=== PATIENT | female | born 1995 | race Caucasian/White ===

== ENCOUNTER 2017-10-06 15:11 | Inpatient (IN) | payer MEDICAID, OTHER ==
[~2017-10-06] VITALS: Ht 177.8 cm; Wt 96.5 kg
[2017-10-06] MEDS ORDERED: SODIUM CHLORIDE 0.9% 500 ML IVB ONE (15:25)
[2017-10-06] MEDS ORDERED: MORPHINE SULFATE 8mg/ml INJ SDV IV ONE (15:30)
[2017-10-06] MEDS ORDERED: ONDANSETRON HCL 4 MG/2 ML VIAL IV ONE (15:30)
[2017-10-06 16:00] LABS: Basophils # (auto) 0.1 uL; Basophils % (auto) 0.6 % (0.0-2.0); Eosinophils # (auto) 0.1 uL; Eosinophils % (auto) 0.9 % (0.0-7.0); Hematocrit 37.7 % (36.0-46.0); Hemoglobin 11.8 g/dL (12.2-16.2); Lymphocytes # (auto) 2.6 uL; Lymphocytes % (auto) 17.5 % (10.0-50.0); Mean Corpuscular Hemoglobin 22.8 pg (28.0-32.0); Mean Corpuscular Hgb Conc. 31.4 g/dL (32.0-36.0); Mean Corpuscular Volume 72.5 fL (80.0-100.0); Monocytes # (auto) 0.6 uL; Monocytes % (auto) 4.1 % (0.0-12.0); Neutrophils # (auto) 11.6 uL; Neutrophils % (auto) 76.9 % (37.0-80.0); Nucleated Red Blood Cells % 0.1 %; Platelet Count (auto) 303 10^3/uL (140-450); Red Cell Distribution Width 17.2 % (11.8-14.3); White Blood Cell 15.1 10^3/uL (4.4-10.8)
[2017-10-06 16:18] LABS: INR 0.93 (0.9-1.15); Partial Thromboplastin Time 22.6 sec (23.78-33.04)
[2017-10-06 16:21] LABS: Albumin 3.6 g/dL (3.4-5.0); BUN/Creatinine Ratio 22.9; Calcium 8.7 mg/dL (8.5-10.1); Magnesium 2.4 mg/dL (1.6-2.6)
[2017-10-06 16:23] LABS: Bilirubin, Total 0.4 mg/dL (0.2-1.0)
[2017-10-06] MEDS ORDERED: diphenhdrAMINE HCL 50 MG/1 ML VL IV ONE (16:30)
[2017-10-06 17:26] LABS: Urine Bacteria FEW /hpf (None Seen); Urine Blood Negative /uL (Negative); Urine Mucus FEW (None Seen); Urine Specific Gravity 1.027 (1.001-1.035); Urine WBC 4 /hpf (0 - 5)
[2017-10-06] MEDS ORDERED: metroNIDAZOLE 500MG/100ML 100 ML IV ONE (19:00)
[2017-10-06] MEDS ORDERED: LEVOFLOXACIN 750MG 150 ML IV ONE (19:00)
[2017-10-06] MEDS ORDERED: ACETAMINOPHEN 500 MG TAB PO PRN (23:15)
[2017-10-06] MEDS: SODIUM CHLORIDE 0.9% 1,000 ML IV SCH (23:54)
[2017-10-07] VITALS (8 sets, daily range): BP systolic 97–122; BP diastolic 57–77
[2017-10-07] MEDS: HYDROcodone-ACET 5/325MG TAB PO PRN ×2 (04:10→20:02)
[2017-10-07] MEDS: metroNIDAZOLE 500MG/100ML 100 ML IV SCH ×3 (06:00→21:45)
[2017-10-07 06:31] LABS: Potassium 4.4 mmol/L (3.5-5.1)
[2017-10-07 06:32] LABS: Basophils # (auto) 0 uL; Basophils % (auto) 0.4 % (0.0-2.0); Eosinophils # (auto) 0.1 uL; Lymphocytes # (auto) 1.8 uL; Neutrophils # (auto) 6.3 uL
[2017-10-07 06:35] LABS: Eosinophils % (auto) 1.2 % (0.0-7.0); Hematocrit 34.3 % (36.0-46.0); Hemoglobin 11.2 g/dL (12.2-16.2); Mean Corpuscular Hemoglobin 23.6 pg (28.0-32.0); Mean Corpuscular Hgb Conc. 32.7 g/dL (32.0-36.0); Mean Corpuscular Volume 72.4 fL (80.0-100.0); Monocytes # (auto) 0.6 uL; Monocytes % (auto) 6.3 % (0.0-12.0); Neutrophils % (auto) 72.1 % (37.0-80.0); Platelet Count (auto) 257 10^3/uL (140-450); Red Blood Cells 4.73 10^6/uL (4.0-5.20); Red Cell Distribution Width 17.4 % (11.8-14.3); White Blood Cell 8.8 10^3/uL (4.4-10.8)
[2017-10-07 06:38] LABS: Albumin 3.1 g/dL (3.4-5.0); BUN/Creatinine Ratio 15.3; Calcium 8.6 mg/dL (8.5-10.1)
[2017-10-07 06:40] LABS: Bilirubin, Total 1.5 mg/dL (0.2-1.0)
[2017-10-07] MEDS: SODIUM CHLORIDE 0.9% 1,000 ML IV SCH ×2 (09:44→19:22)
[2017-10-07] MEDS ORDERED: SUCCINYLCHOLINE CHLORIDE 20 MG/ML 10ML VIAL IV ONE (17:05)
[2017-10-07] MEDS ORDERED: MIDAZOLAM HCL 1MG/1ML-2 ML VIAL ONE (17:09)
[2017-10-07] MEDS ORDERED: ROCURONIUM 10MG/ML 10ML VIAL IV ONE (17:09)
[2017-10-07] MEDS ORDERED: fentaNYL CITRATE 100 MCG/2 ML VL ONE (17:09)
[2017-10-07] MEDS ORDERED: PROPOFOL 10 MG/ML 20 ML IV ONE ×2 (17:12→17:27)
[2017-10-07] MEDS ORDERED: ONDANSETRON HCL 4 MG/2 ML VIAL ONE (17:43)
[2017-10-07] MEDS ORDERED: GLYCOPYRROLATE 0.2 MG/ML 1ML VIAL ONE (17:48)
[2017-10-07] MEDS ORDERED: NEOSTIGMINE 1 MG/ML INJ (10mg/10ML VIAL) ONE (17:48)
[2017-10-07] MEDS ORDERED: HYDROmorphone HCL 2 MG/ML VL ONE (18:07)
[2017-10-07] MEDS: HYDROmorphone HCL 2 MG/ML VL IV PRN ×4 (18:08→18:45)
[2017-10-07] MEDS ORDERED: METOCLOPRAMIDE HCL 5MG/ml INJ 2ml VIAL IV ONE (18:15)
[2017-10-07] MEDS ORDERED: LEVOFLOXACIN 500MG 100 ML IV SCH (22:00)
[2017-10-08] VITALS (7 sets, daily range): BP systolic 104–119; BP diastolic 58–71
[2017-10-08] MEDS: HYDROcodone-ACET 5/325MG TAB PO PRN ×4 (00:28→17:42)
[2017-10-08] MEDS: metroNIDAZOLE 500MG/100ML 100 ML IV SCH ×4 (05:55→17:16)
[2017-10-08] MEDS: SODIUM CHLORIDE 0.9% 1,000 ML IV SCH ×2 (05:55→10:58)
[2017-10-08 06:36] LABS: Basophils # (auto) 0 uL; Basophils % (auto) 0.3 % (0.0-2.0); Eosinophils # (auto) 0 uL; Hemoglobin 11.3 g/dL (12.2-16.2); Lymphocytes # (auto) 0.5 uL; Monocytes # (auto) 0.1 uL; Neutrophils # (auto) 6.3 uL; Nucleated Red Blood Cells % 0.1 %; White Blood Cell 6.9 10^3/uL (4.4-10.8)
[2017-10-08 06:37] LABS: Hematocrit 35.3 % (36.0-46.0); Lymphocytes % (auto) 7.4 % (10.0-50.0); Mean Corpuscular Hemoglobin 23.3 pg (28.0-32.0); Mean Corpuscular Volume 72.7 fL (80.0-100.0); Monocytes % (auto) 1.4 % (0.0-12.0); Neutrophils % (auto) 90.9 % (37.0-80.0); Platelet Count (auto) 271 10^3/uL (140-450); Red Blood Cells 4.85 10^6/uL (4.0-5.20); Red Cell Distribution Width 17.3 % (11.8-14.3)
[2017-10-08 06:50] LABS: Albumin 3.2 g/dL (3.4-5.0); BUN/Creatinine Ratio 10.5; Bilirubin, Total 2.2 mg/dL (0.2-1.0); Calcium 8.6 mg/dL (8.5-10.1); Total Protein 7.1 g/dL (6.4-8.2)
[2017-10-08] MEDS ORDERED: cefTRIAXone 1GM/10ml IVPUSH 10 ML IV ONE (11:15)
[2017-10-08 11:28] LABS: Amylase 27 U/L (25-115); Lipase 72 U/L (73-393)
[2017-10-09] MEDS: metroNIDAZOLE 500MG/100ML 100 ML IV SCH ×5 (00:05→23:43)
[2017-10-09] MEDS: HYDROcodone-ACET 5/325MG TAB PO PRN ×4 (01:36→23:44)
[2017-10-09] MEDS: SODIUM CHLORIDE 0.9% 1,000 ML IV SCH ×3 (01:36→14:00)
[2017-10-09] MEDS: ONDANSETRON HCL 4 MG/2 ML VIAL IV PRN ×5 (01:54→23:22)
[2017-10-09 04:32] VITALS: BP 107/72
[2017-10-09 06:49] LABS: Basophils # (auto) 0.1 uL; Basophils % (auto) 0.7 % (0.0-2.0); Eosinophils # (auto) 0.1 uL; Hemoglobin 10.1 g/dL (12.2-16.2); Monocytes # (auto) 0.5 uL; White Blood Cell 8.3 10^3/uL (4.4-10.8)
[2017-10-09 06:53] LABS: Eosinophils % (auto) 1.1 % (0.0-7.0); Hematocrit 31.3 % (36.0-46.0); Lymphocytes # (auto) 2.9 uL; Lymphocytes % (auto) 35.5 % (10.0-50.0); Mean Corpuscular Hemoglobin 23.6 pg (28.0-32.0); Mean Corpuscular Hgb Conc. 32.3 g/dL (32.0-36.0); Mean Corpuscular Volume 73.2 fL (80.0-100.0); Monocytes % (auto) 6.4 % (0.0-12.0); Neutrophils # (auto) 4.7 uL; Neutrophils % (auto) 56.3 % (37.0-80.0); Platelet Count (auto) 243 10^3/uL (140-450); Red Blood Cells 4.28 10^6/uL (4.0-5.20); Red Cell Distribution Width 17.5 % (11.8-14.3)
[2017-10-09 07:11] LABS: Albumin 2.8 g/dL (3.4-5.0); BUN/Creatinine Ratio 11.9; Calcium 8.2 mg/dL (8.5-10.1); Potassium 3.7 mmol/L (3.5-5.1)
[2017-10-09 07:14] LABS: Bilirubin, Total 2.5 mg/dL (0.2-1.0); Total Protein 6.1 g/dL (6.4-8.2)
[2017-10-09] MEDS: cefTRIAXone 1GM/10ml IVPUSH 10 ML IV SCH (09:30)
[2017-10-09 09:32] VITALS: BP 138/76
[2017-10-09 13:55] VITALS: BP 122/70
[2017-10-09 17:15] VITALS: BP 108/73
[2017-10-09 22:43] VITALS: BP 101/52
[2017-10-10 05:18] VITALS: BP 134/91
[2017-10-10] MEDS: metroNIDAZOLE 500MG/100ML 100 ML IV SCH ×3 (06:44→18:22)
[2017-10-10] MEDS: ONDANSETRON HCL 4 MG/2 ML VIAL IV PRN ×3 (06:44→20:10)
[2017-10-10] MEDS: SODIUM CHLORIDE 0.9% 1,000 ML IV SCH ×2 (06:45→16:40)
[2017-10-10 07:07] LABS: Basophils # (auto) 0.1 uL; Lymphocytes # (auto) 1.8 uL; Monocytes # (auto) 0.5 uL; Monocytes % (auto) 5.5 % (0.0-12.0); White Blood Cell 9.6 10^3/uL (4.4-10.8)
[2017-10-10 07:09] LABS: Basophils % (auto) 0.6 % (0.0-2.0); Eosinophils # (auto) 0.1 uL; Eosinophils % (auto) 1.6 % (0.0-7.0); Hematocrit 34.1 % (36.0-46.0); Hemoglobin 10.8 g/dL (12.2-16.2); Mean Corpuscular Hemoglobin 23.4 pg (28.0-32.0); Mean Corpuscular Hgb Conc. 31.8 g/dL (32.0-36.0); Mean Corpuscular Volume 73.5 fL (80.0-100.0); Neutrophils % (auto) 73.3 % (37.0-80.0); Platelet Count (auto) 273 10^3/uL (140-450); Red Blood Cells 4.64 10^6/uL (4.0-5.20); Red Cell Distribution Width 17.9 % (11.8-14.3)
[2017-10-10 07:36] LABS: BUN/Creatinine Ratio 8.5; Bilirubin, Total 3.5 mg/dL (0.2-1.0); Calcium 8.3 mg/dL (8.5-10.1); Total Protein 6.6 g/dL (6.4-8.2)
[2017-10-10 08:43] VITALS: BP 119/71
[2017-10-10] MEDS: HYDROcodone-ACET 5/325MG TAB PO PRN ×2 (09:18→18:53)
[2017-10-10] MEDS: cefTRIAXone 1GM/10ml IVPUSH 10 ML IV SCH (09:37)
[2017-10-10 12:43] VITALS: BP 108/74
[2017-10-10 17:00] VITALS: BP 121/70
[2017-10-10 21:37] VITALS: BP 104/60
[2017-10-11] MEDS: HYDROcodone-ACET 5/325MG TAB PO PRN ×4 (00:03→18:02)
[2017-10-11] MEDS: metroNIDAZOLE 500MG/100ML 100 ML IV SCH ×5 (00:04→23:55)
[2017-10-11] MEDS: ONDANSETRON HCL 4 MG/2 ML VIAL IV PRN ×4 (00:07→18:01)
[2017-10-11] MEDS: SODIUM CHLORIDE 0.9% 1,000 ML IV SCH ×2 (04:50→20:37)
[2017-10-11 05:05] VITALS: BP 137/72
[2017-10-11 07:05] LABS: Bilirubin, Direct 3.9 mg/dL (0-0.2); Bilirubin, Total 4.5 mg/dL (0.2-1.0); Total Protein 6.7 g/dL (6.4-8.2)
[2017-10-11 09:00] VITALS: BP 106/66
[2017-10-11] MEDS: cefTRIAXone 1GM/10ml IVPUSH 10 ML IV SCH (10:12)
[2017-10-11 12:59] VITALS: BP 111/59
[2017-10-11 21:49] VITALS: BP 136/82
[2017-10-12] MEDS: ONDANSETRON HCL 4 MG/2 ML VIAL IV PRN ×2 (04:05→08:16)
[2017-10-12 04:41] VITALS: BP_SYST 127; BP_SYST 141; BP_DIAS 76; BP_DIAS 85
[2017-10-12] MEDS: metroNIDAZOLE 500MG/100ML 100 ML IV SCH (05:14)
[2017-10-12 06:30] LABS: Bilirubin, Direct 4.1 mg/dL (0-0.2); Total Protein 6.8 g/dL (6.4-8.2)
[2017-10-12] MEDS: HYDROcodone-ACET 5/325MG TAB PO PRN (08:16)
[2017-10-12 09:00] VITALS: BP 124/73
[2017-10-12] MEDS: cefTRIAXone 1GM/10ml IVPUSH 10 ML IV SCH (09:59)
[2017-10-12 13:00] VITALS: BP 101/50
[2017-10-12 17:00] VITALS: BP 102/50
[2017-10-12] MEDS: IBUPROFEN 600 MG TAB PO PRN (20:28)
[2017-10-12] MEDS: SODIUM CHLORIDE 0.9% 1,000 ML IV SCH (21:36)
[2017-10-12 22:00] VITALS: BP_SYST 122; BP_SYST 146; BP_DIAS 71; BP_DIAS 73
[2017-10-13] MEDS: IBUPROFEN 600 MG TAB PO PRN ×3 (04:59→21:54)
[2017-10-13] MEDS: ONDANSETRON HCL 4 MG/2 ML VIAL IV PRN ×2 (05:02→11:07)
[2017-10-13 05:04] VITALS: BP 114/54
[2017-10-13 05:11] LABS: Basophils # (auto) 0.1 uL; Basophils % (auto) 0.9 % (0.0-2.0); Eosinophils # (auto) 0.3 uL; Mean Corpuscular Volume 72.7 fL (80.0-100.0); Red Cell Distribution Width 18.3 % (11.8-14.3)
[2017-10-13 05:14] LABS: Hematocrit 37.7 % (36.0-46.0); Hemoglobin 12.1 g/dL (12.2-16.2); Lymphocytes # (auto) 2.2 uL; Lymphocytes % (auto) 17.8 % (10.0-50.0); Mean Corpuscular Hemoglobin 23.4 pg (28.0-32.0); Mean Corpuscular Hgb Conc. 32.2 g/dL (32.0-36.0); Monocytes # (auto) 0.6 uL; Monocytes % (auto) 5.2 % (0.0-12.0); Neutrophils # (auto) 9.3 uL; Neutrophils % (auto) 74.1 % (37.0-80.0); Nucleated Red Blood Cells % 0.1 %; Platelet Count (auto) 319 10^3/uL (140-450); Red Blood Cells 5.19 10^6/uL (4.0-5.20); White Blood Cell 12.6 10^3/uL (4.4-10.8)
[2017-10-13 05:29] LABS: Albumin 3.3 g/dL (3.4-5.0); BUN/Creatinine Ratio 10.7; Bilirubin, Total 7.6 mg/dL (0.2-1.0); Calcium 9.2 mg/dL (8.5-10.1); Potassium 4.1 mmol/L (3.5-5.1); Total Protein 7.6 g/dL (6.4-8.2)
[2017-10-13 08:30] VITALS: BP 100/45
[2017-10-13 08:53] VITALS: BP_SYST 100; BP_SYST 157; BP_DIAS 41; BP_DIAS 86
[2017-10-13] MEDS ORDERED: cefTRIAXone 1GM/10ml IVPUSH 10 ML IV ONE (10:15)
[2017-10-13] MEDS: SODIUM CHLORIDE 0.9% 1,000 ML IV SCH (11:20)
[2017-10-13 13:03] VITALS: BP 106/71
[2017-10-13] MEDS: metroNIDAZOLE 500 MG TAB PO SCH ×2 (14:33→21:54)
[2017-10-13 17:13] VITALS: BP_SYST 111; BP_SYST 138; BP_DIAS 67; BP_DIAS 71
[2017-10-13 22:00] VITALS: BP 137/74
[2017-10-13 22:24] LABS: Albumin 3.3 g/dL (3.4-5.0); Bilirubin, Direct 7.4 mg/dL (0-0.2); Total Protein 7.6 g/dL (6.4-8.2)
[2017-10-14] MEDS: SODIUM CHLORIDE 0.9% 1,000 ML IV SCH ×2 (00:25→14:00)
[2017-10-14 05:10] VITALS: BP 101/49
[2017-10-14] MEDS: metroNIDAZOLE 500 MG TAB PO SCH ×3 (06:00→21:36)
[2017-10-14 06:41] LABS: Basophils # (auto) 0.1 uL; Hemoglobin 11.7 g/dL (12.2-16.2); Lymphocytes # (auto) 2.1 uL; Monocytes # (auto) 0.6 uL; Red Blood Cells 4.99 10^6/uL (4.0-5.20)
[2017-10-14 06:44] LABS: Basophils % (auto) 0.8 % (0.0-2.0); Eosinophils # (auto) 0.3 uL; Eosinophils % (auto) 3.2 % (0.0-7.0); Lymphocytes % (auto) 21.1 % (10.0-50.0); Mean Corpuscular Hemoglobin 23.4 pg (28.0-32.0); Mean Corpuscular Hgb Conc. 32.5 g/dL (32.0-36.0); Mean Corpuscular Volume 72.1 fL (80.0-100.0); Monocytes % (auto) 5.7 % (0.0-12.0); Neutrophils % (auto) 69.2 % (37.0-80.0); Platelet Count (auto) 302 10^3/uL (140-450); White Blood Cell 10.1 10^3/uL (4.4-10.8)
[2017-10-14 07:20] LABS: Albumin 3.1 g/dL (3.4-5.0); Bilirubin, Direct 4.4 mg/dL (0-0.2); Bilirubin, Total 5.6 mg/dL (0.2-1.0); Total Protein 7.2 g/dL (6.4-8.2)
[2017-10-14 08:29] VITALS: BP 103/72
[2017-10-14 09:00] VITALS: BP 103/72
[2017-10-14] MEDS ORDERED: cefTRIAXone 1GM/10ml IVPUSH 10 ML IV SCH (09:00)
[2017-10-14] MEDS ORDERED: IOHEXOL 300 MG/ML 100ML BOTTLE IJ ONE (12:45)
[2017-10-14] MEDS ORDERED: LIDOCAINE HCL 2 %PF INJ 10ML AMP IJ ONE (12:54)
[2017-10-14] MEDS ORDERED: PROPOFOL 10 MG/ML 20 ML IV ONE ×3 (12:54→13:33)
[2017-10-14] MEDS ORDERED: MIDAZOLAM HCL 1MG/1ML-2 ML VIAL ONE (12:55)
[2017-10-14 12:56] VITALS: BP 113/70
[2017-10-14] MEDS ORDERED: METOCLOPRAMIDE HCL 5MG/ml INJ 2ml VIAL IV ONE (14:00)
[2017-10-14] MEDS ORDERED: HYDROmorphone HCL 2 MG/ML VL IV PRN ×2 (14:00)
[2017-10-14] MEDS ORDERED: ONDANSETRON HCL 4 MG/2 ML VIAL IV ONE (14:00)
[2017-10-14] MEDS ORDERED: LABETALOL HCL 5 MG/ML 4ML SYRINGE IV PRN (14:00)
[2017-10-14 17:00] VITALS: BP 153/69
[2017-10-14 22:00] VITALS: BP 128/77
[2017-10-15] MEDS: SODIUM CHLORIDE 0.9% 1,000 ML IV SCH (03:20)
[2017-10-15 04:45] VITALS: BP 108/58
[2017-10-15] MEDS: metroNIDAZOLE 500 MG TAB PO SCH (05:47)
[2017-10-15 05:49] LABS: Basophils # (auto) 0.1 uL; Hemoglobin 11.6 g/dL (12.2-16.2); Lymphocytes # (auto) 1.9 uL; Mean Corpuscular Hemoglobin 23.1 pg (28.0-32.0); White Blood Cell 11.9 10^3/uL (4.4-10.8)
[2017-10-15 05:54] LABS: Basophils % (auto) 0.5 % (0.0-2.0); Eosinophils # (auto) 0.3 uL; Eosinophils % (auto) 2.5 % (0.0-7.0); Hematocrit 36.3 % (36.0-46.0); Lymphocytes % (auto) 15.8 % (10.0-50.0); Monocytes # (auto) 0.7 uL; Monocytes % (auto) 5.5 % (0.0-12.0); Neutrophils % (auto) 75.7 % (37.0-80.0); Platelet Count (auto) 309 10^3/uL (140-450); Red Blood Cells 5.05 10^6/uL (4.0-5.20); Red Cell Distribution Width 18.2 % (11.8-14.3)
[2017-10-15 05:57] LABS: Albumin 3.1 g/dL (3.4-5.0); BUN/Creatinine Ratio 19.6; Bilirubin, Total 2.9 mg/dL (0.2-1.0); Calcium 8.9 mg/dL (8.5-10.1); Potassium 3.8 mmol/L (3.5-5.1); Total Protein 7.3 g/dL (6.4-8.2)
[2017-10-15 07:38] VITALS: BP 96/48
[2017-10-15 07:44] VITALS: BP 96/48
[2017-10-15 10:01] VITALS: BP 96/48
[2017-10-15 12:21] VITALS: BP 102/61
== END 2017-10-15 13:01 | disposition home or self-care (01) | DRG 263 ==
LOC: ER 15:20 → OVERFLOW 15:21 → WEST WING 10-07 00:23
PROVIDERS: ADMIT Nurse Practitioner Family; ATTEND Internal Medicine
PROC: 0FT44ZZ Resection of Gallbladder, Percutaneous Endoscopic Approach (ICD-10-PCS; principal; 2017-10-07 17:00)
PROC: 0FC98ZZ Extirpation of Matter from Common Bile Duct, Via Natural or Artificial Opening Endoscopic (ICD-10-PCS; 2017-10-14)
PROC: BF13YZZ Fluoroscopy of Gallbladder and Bile Ducts using Other Contrast (ICD-10-PCS; 2017-10-14)
DX: K80.00 Calculus of gallbladder with acute cholecystitis without obstruction (principal); R65.10 Systemic inflammatory response syndrome (SIRS) of non-infectious origin without acute organ dysfunction; E44.0 Moderate protein-calorie malnutrition; E88.09 Other disorders of plasma-protein metabolism, not elsewhere classified; R17 Unspecified jaundice; N39.0 Urinary tract infection, site not specified; E66.9 Obesity, unspecified; D63.8 Anemia in other chronic diseases classified elsewhere; M54.9 Dorsalgia, unspecified; R79.89 Other specified abnormal findings of blood chemistry; D64.9 Anemia, unspecified; Z83.3 Family history of diabetes mellitus; Z68.30 Body mass index [BMI] 30.0-30.9, adult; Z88.0 Allergy status to penicillin
CPT/HCPCS: 36415; 74018; 74176; 74181; 76000; 76705; 80053; 80076; 81001; 82150; 83690; 83735; 84702; 85025; 85610; 85730; 86850; 86900; 86901; 87086; 93005; 94761; 96361; 96365; 96368; 96375; J0330; J1956; J2250; J2270; J2405; J2704; J3490